=== PATIENT | male | born 1970 | race Caucasian/White ===

== ENCOUNTER 2022-02-05 10:50 | Inpatient (IN) | payer SELFPAY ==
[~2022-02-05] VITALS: Ht 165.1 cm; Wt 683.1 kg
[~2022-02-05 10:50] MED LIST: DIPH25CA83 PO
[2022-02-05] MEDS ORDERED: ONDANSETRON HCL 4MG/2ML INJ IV STA (11:07)
[2022-02-05] MEDS ORDERED: SODIUM CHLORIDE 0.9% 1,000 ML IV ONE (11:15)
[2022-02-05] MEDS ORDERED: ASPIRIN 81MG TABLET PO ONE (11:30)
[2022-02-05] MEDS: NITROGLYCERIN 0.4MG TABLET SL SL PRN ×2 (11:39→11:56)
[2022-02-05 12:02] LABS: CHLORIDE 99 mEq/L (98-107)
[2022-02-05 12:03] LABS: BASOPHILS % 1.2 % (0.0-2.0); EOSINOPHILS % 0.7 % (0.0-5.0); HEMATOCRIT. 48.3 % (42.0-52.0); HEMOGLOBIN. 16.2 g/dL (14.0-18.0); LYMPHOCYTES % 21.5 % (20.0-50.0); MEAN CORPUSCULAR HEMOGLOBIN 28.1 pg (28.0-32.0); MEAN CORPUSCULAR VOLUME 83.6 fL (80.0-94.0); MONOCYTES % 6.3 % (2.0-8.0); NEUTROPHILS % 70.3 % (40.0-76.0); PLATELET 346 x1000/uL (130-400); RED BLOOD CELL COUNT 5.77 mill/uL (4.7-6.1); RED CELL DISTRIBUTION WIDTH 13.3 % (11.6-14.6)
[2022-02-05 12:15] LABS: ETHANOL BLOOD < 10 mg/dL
[2022-02-05] MEDS ORDERED: GUAIFENESIN 200MG/10ML SUGAR FREE UDC PO PRN (17:45)
[2022-02-05] MEDS ORDERED: MAGNESIUM/ALUMINUM HYDROXIDE/SIMETHICONE 30ML UDC PO PRN (17:45)
[2022-02-05] MEDS ORDERED: DOCUSATE SODIUM 100MG CAPSULE PO PRN (17:45)
[2022-02-05] MEDS ORDERED: ACETAMINOPHEN 325MG TABLET PO PRN (17:45)
[2022-02-05] MEDS ORDERED: ONDANSETRON HCL 4MG/2ML INJ IV PRN (17:45)
[2022-02-05] MEDS ORDERED: ENOXAPARIN 40MG/0.4ML SYR SUBCUT SCH (18:30)
[2022-02-05 22:00] VITALS: BP 162/95
[2022-02-05] MEDS ORDERED: DEXTROSE 50% WATER 50ML SYRINGE IV PRN (22:45)
[2022-02-05] MEDS: HYDROCODONE/ACETAMINOPHEN 5/325MG TABLET PO PRN (22:57)
[2022-02-05] MEDS: CLONIDINE 0.1MG TABLET PO PRN (22:58)
[2022-02-05] MEDS: INSULIN LISPRO 100 UNITS/ML SUBCUT SCH (23:01)
[2022-02-05] MEDS: BLOOD SUGAR DIAGNOSTIC STRIP TEST SCH (23:02)
[2022-02-05 23:30] VITALS: BP 162/95
[2022-02-06] VITALS: BP 142/84
[2022-02-06 04:00] VITALS: BP 136/85
[2022-02-06] MEDS: HYDROCODONE/ACETAMINOPHEN 5/325MG TABLET PO PRN (06:39)
[2022-02-06] MEDS ORDERED: BLOOD SUGAR DIAGNOSTIC STRIP TEST SCH (07:20)
[2022-02-06] MEDS: BLOOD SUGAR DIAGNOSTIC STRIP TEST SCH ×2 (07:27→12:20)
[2022-02-06] MEDS ORDERED: INSULIN LISPRO 100 UNITS/ML SUBCUT SCH (07:50)
[2022-02-06 08:00] VITALS: BP 146/87
[2022-02-06 08:08] LABS: BASOPHILS % 1.5 % (0.0-2.0); EOSINOPHILS % 4.3 % (0.0-5.0); HEMATOCRIT. 44.2 % (42.0-52.0); HEMOGLOBIN. 14.8 g/dL (14.0-18.0); LYMPHOCYTES % 32.7 % (20.0-50.0); MEAN CORPUSCULAR HEMOGLOBIN 28.4 pg (28.0-32.0); MEAN PLATELET VOLUME 8.9 fl (7.4-10.4); MONOCYTES % 6.9 % (2.0-8.0); NEUTROPHILS % 54.6 % (40.0-76.0); PLATELET 313 x1000/uL (130-400); RED BLOOD CELL COUNT 5.21 mill/uL (4.7-6.1); RED CELL DISTRIBUTION WIDTH 13.3 % (11.6-14.6)
[2022-02-06] MEDS: INSULIN LISPRO 100 UNITS/ML SUBCUT SCH ×2 (08:08→13:40)
[2022-02-06 08:54] LABS: CHLORIDE 105 mEq/L (98-107)
[2022-02-06] MEDS ORDERED: ASPIRIN 81MG EC TABLET PO SCH (09:00)
[2022-02-06] MEDS ORDERED: AMLODIPINE 10MG TABLET PO SCH (09:00)
[2022-02-06 09:03] LABS: HDL CHOLESTEROL 36 mg/dL (40-59); LDL CHOLESTEROL 109 mg/dL (5-100)
[2022-02-06] MEDS ORDERED: INSULIN GLARGINE 100 UNITS/ML SUBCUT NR (10:45)
[2022-02-06 12:00] VITALS: BP 141/100
[2022-02-06] MEDS ORDERED: NALOXONE HCL 0.4MG/ML VIAL IV PRN (13:15)
[2022-02-06] MEDS ORDERED: MECLIZINE 25MG TABLET PO SCH (13:30)
[2022-02-06] MEDS: CLONIDINE 0.1MG TABLET PO PRN (13:35)
[2022-02-06] MEDS ORDERED: KETOROLAC 15MG/ML VIAL IV PRN (15:30)
[2022-02-06 15:31] VITALS: BP 141/100
[2022-02-06] MEDS ORDERED: ATORVASTATIN CALCIUM 20MG TABLET PO SCH (21:00)
== END 2022-02-06 15:55 | disposition left against medical advice (07) | DRG 199 ==
LOC: ER 10:56 → 6WST 16:36 → EDBEDREQ 17:09 → EDBEDREQTM 17:09 → ENRESERV 19:54
PROVIDERS: ADMIT Hospitalist; ATTEND Hospitalist
DX: I16.1 Hypertensive emergency (principal); E11.9 Type 2 diabetes mellitus without complications; I10 Essential (primary) hypertension; Z20.822 Contact with and (suspected) exposure to COVID-19; R94.31 Abnormal electrocardiogram [ECG] [EKG]; E78.5 Hyperlipidemia, unspecified; Z91.14 Patient's other noncompliance with medication regimen; Z82.49 Family history of ischemic heart disease and other diseases of the circulatory system; Z91.19 Patient's noncompliance with other medical treatment and regimen; I25.2 Old myocardial infarction
CPT/HCPCS: 36415; 80053; 80061; 80320; 82962; 83036; 83880; 84484; 85025; 87426; 93306; 99291; C9803; J1650; J1815; J1885; J2405; J7030; J8597; G0480